=== PATIENT | male | born 1965 | race Caucasian/White ===

== ENCOUNTER 2017-05-03 17:07 | Inpatient (IN) | payer OTHER ==
[~2017-05-03] VITALS: Ht 157.5 cm; Wt 71.4 kg
[~2017-05-03 17:07] MED LIST: ABILIFY5 MG PO; ACID CONTROL20 MG PO; ADVAIR 250/501 DISK IH; ADVAIR HFA120 INHALA IH; ANTI-DIARRHEA2 MG PO; ARIPIPRAZOLE5 MG PO; ASMANEX TW200 MICRO1 IH; ASMANEX TW200 MICROG IH; AUGMENTIN875 MG PO; Advair HFA 115/21 IH; BENZTROPINE ME0.5 MG PO; COGENTIN0.5 MG PO; DELTASONE20 M1 PO; DIAZEPAM5 MG PO; FANAPT2 MG PO; FANAPT8 MG PO; FENOFIBRATE160 M1 PO; FLUOXETINE HCL10 MG PO; GLIMEPIRIDE1 MG PO; GLUCOPHAGE500 MG PO; Habitrol,Nicoderm CQ TD; LO-DOSE ASPIRIN81 M1 PO; LOFIBRA,TRIGLI160 MG PO; LOPID600 MG PO; Levaquin PO; MAXAIR AUTOHALE14 GM IH; MOTRIN800 MG PO; PERPHENAZINE4 MG PO; PERPHENAZINE8 MG PO; PREDNISONE10 MG PO; PREDNISONE20 MG PO; PROAIR HFA8.5 GM IH; PROSCAR5 MG PO; PROZAC10 MG PO; Proventil,Ventolin H IH; SPIRIVA RESPIMAT4 GM IH; TAMSULOSIN HCL0.4 MG PO; TRAZODONE HCL50 MG PO; TRILAFON4 MG PO; TRILAFON8 MG PO; Theo-Dur,Theocron PO; VALIUM2 MG PO; VENTOLIN HFA18 GM IH; VESICARE5 MG PO; WELCHOL3.75 GM PO
[2017-05-03 19:44] LABS: EOSINOPHIL COUNT 0.2 K/uL (0-0.3); HEMATOCRIT 49.4 % (38.0-50.0); IMMATURE GRANULOCYTE (%) 0.4 % (0.0-0.7); INSTRUMENT ABS NEUTROPHIL CT 4.8 K/uL; LYMPHOCYTE COUNT 2.1 K/uL (1.0-2.8); MCV 97.1 FL (86-99); MEAN PLAT.VOLUME 10.3 uM^3 (9.0-12.4); MONOCYTE (%) 5.7 % (3-12); MONOCYTE COUNT 0.4 K/uL (0-0.8); NEUTROPHIL (%) 63.4 % (45-76); NEUTROPHIL COUNT 4.8 K/uL (1.8-6.4); PLATELET COUNT 112 K/uL (156-360); RBC DIS.WIDTH-CV 11.4 % (11.8-14.6); RBC DIS.WIDTH-SD 40.8 % (39-53); RED BLOOD COUNT 5.09 M/uL (4.00-5.50); WHITE BLOOD COUNT 7.6 K/uL (4.1-10.2)
[2017-05-03 19:52] LABS: CHLORIDE 105 mEq/L (99-109); POTASSIUM 4.3 mEq/L (3.7-5.4); SODIUM 143 mEq/L (136-147)
[2017-05-03 19:54] LABS: GLUCOSE 107 mg/dL (70-99)
[2017-05-03 19:56] LABS: ANION GAP 12 MEQ/L (2-14)
[2017-05-03 19:57] LABS: SERUM ETHYL ALCOHOL < 10 mg/dL
[2017-05-03 19:58] LABS: GFR ESTIMATE (CALCULATED) > 59 mL/min/
[2017-05-03 19:59] LABS: UREA NITROGEN (BUN) 10 mg/dL (9-23)
[2017-05-03] MEDS ORDERED: ASMANEX TW200 MICRO1 IH (21:46)
[2017-05-03] MEDS ORDERED: GLUCOPHAGE XR750 MG PO (21:47)
[2017-05-03] MEDS ORDERED: VASCEPA1 GM PO (21:48)
[2017-05-03] MEDS ORDERED: TAMSULOSIN HCL0.4 MG PO (21:49)
[2017-05-03] MEDS ORDERED: TRAZODONE HCL50 MG PO (21:50)
[2017-05-03] MEDS ORDERED: BENZTROPINE ME0.5 MG PO (21:51)
[2017-05-03] MEDS ORDERED: ARIPIPRAZOLE10 MG PO (21:52)
[2017-05-03] MEDS ORDERED: TRILAFON8 MG PO (21:53)
[2017-05-03] MEDS ORDERED: FINASTERIDE5 MG PO (21:54)
[2017-05-03] MEDS ORDERED: SPIRIVA RESPIMAT4 GM IH (21:55)
[2017-05-03 23:10] LABS: AMPHETAMINE NEGATIVE (500 ng/mL); BARBITURATES NEGATIVE (200 ng/mL); BENZODIAZEPINES NEGATIVE (150 ng/mL); COCAINE NEGATIVE (150 ng/mL); INTERNAL CONTROLS VALID? YES; METHADONE NEGATIVE (200 ng/mL); METHAMPHETAMINE NEGATIVE (500 ng/mL); OPIATES (MORPHINE) NEGATIVE (100 ng/mL); OXYCODONE NEGATIVE (100 ng/mL); PHENCYCLIDINE NEGATIVE (25 ng/mL); PROPOXYPHENE NEGATIVE (300 ng/mL); THC CANNABINOIDS NEGATIVE (50 ng/mL); TRICYCLIC ANTIDEPRESSANTS NEGATIVE (300 ng/mL)
[2017-05-04 00:43] VITALS: BP 121/71
[2017-05-04 01:08] VITALS: BP 121/71
[2017-05-04 07:32] VITALS: BP 144/78
[2017-05-04 15:45] VITALS: BP 138/78
[2017-05-05 07:33] VITALS: BP 133/85
[2017-05-05 15:23] VITALS: BP 125/80
[2017-05-06 07:26] VITALS: BP 129/81
[2017-05-06 15:30] VITALS: BP 130/79
[2017-05-07 07:34] VITALS: BP 123/76
[2017-05-07 15:41] VITALS: BP 121/79
[2017-05-08 07:43] VITALS: BP 112/67
[2017-05-08] MEDS ORDERED: PERPHENAZINE16 MG PO (09:53)
== END 2017-05-08 11:29 | disposition home or self-care (01) | DRG 885 ==
LOC: EME 17:07 → EDOF 19:45 → 1WEST 19:45
PROVIDERS: Emergency Medicine
DX: F20.9 Schizophrenia, unspecified (principal); I50.9 Heart failure, unspecified; E11.9 Type 2 diabetes mellitus without complications; F22 Delusional disorders; E78.00 Pure hypercholesterolemia, unspecified; Z91.19 Patient's noncompliance with other medical treatment and regimen; F17.200 Nicotine dependence, unspecified, uncomplicated; J44.9 Chronic obstructive pulmonary disease, unspecified; Z91.14 Patient's other noncompliance with medication regimen; Z68.29 Body mass index [BMI] 29.0-29.9, adult
CPT/HCPCS: 80048; 85025; 90839; 94640; 94640 76; 97150 GO; 97165 GO; 99281; 99284; G0480; Q0175

== ENCOUNTER 2017-05-29 13:52 | Emergency (ER) | payer OTHER ==
[~2017-05-29] VITALS: Ht 157.5 cm; Wt 71.2 kg
[~2017-05-29 13:52] MED LIST changes: +ARIPIPRAZOLE10 MG PO; +FINASTERIDE5 MG PO; +GLUCOPHAGE XR750 MG PO; +PERPHENAZINE16 MG PO; +VASCEPA1 GM PO
[2017-05-29 16:13] LABS: AMPHETAMINE NEGATIVE (500 ng/mL); BARBITURATES NEGATIVE (200 ng/mL); BENZODIAZEPINES NEGATIVE (150 ng/mL); COCAINE NEGATIVE (150 ng/mL); INTERNAL CONTROLS VALID? YES; METHADONE NEGATIVE (200 ng/mL); METHAMPHETAMINE NEGATIVE (500 ng/mL); OPIATES (MORPHINE) NEGATIVE (100 ng/mL); OXYCODONE NEGATIVE (100 ng/mL); PHENCYCLIDINE NEGATIVE (25 ng/mL); PROPOXYPHENE NEGATIVE (300 ng/mL); THC CANNABINOIDS NEGATIVE (50 ng/mL); TRICYCLIC ANTIDEPRESSANTS NEGATIVE (300 ng/mL)
[2017-05-29 16:39] LABS: HEMATOCRIT 50.7 % (38.0-50.0); MCH 34.5 PG (29.0-34.0); MCHC 35.9 G/DL (30.0-36.0); MEAN PLAT.VOLUME 10.1 uM^3 (9.0-12.4); PLATELET COUNT 139 K/uL (156-360); RBC DIS.WIDTH-CV 11.2 % (11.8-14.6); RBC DIS.WIDTH-SD 39.7 % (39-53); RED BLOOD COUNT 5.28 M/uL (4.00-5.50); WHITE BLOOD COUNT 11.4 K/uL (4.1-10.2)
[2017-05-29 16:47] LABS: CHLORIDE 106 mEq/L (99-109); POTASSIUM 4.1 mEq/L (3.7-5.4); SODIUM 140 mEq/L (136-147)
[2017-05-29 16:49] LABS: GLUCOSE 116 mg/dL (70-99)
[2017-05-29 16:50] LABS: ANION GAP 7 MEQ/L (2-14)
[2017-05-29 16:52] LABS: SERUM ETHYL ALCOHOL < 10 mg/dL
[2017-05-29 16:53] LABS: GFR ESTIMATE (CALCULATED) > 59 mL/min/
[2017-05-29 16:54] LABS: UREA NITROGEN (BUN) 11 mg/dL (9-23)
[2017-05-29] MEDS ORDERED: FLONASE16 G1 BOTH NARES (18:11)
[2017-05-29] MEDS ORDERED: ALLERGY RELIEF10 M1 PO (18:11)
[2017-05-29] MEDS ORDERED: ABILIFY MAINTE400 M1 IM (18:11)
[2017-05-29] MEDS ORDERED: FENOFIBRATE160 M1 PO (18:12)
[2017-05-29 19:49] VITALS: BP 131/81
== END 2017-05-29 19:56 ==
LOC: EME 13:52
PROVIDERS: Emergency Medicine
DX: F20.9 Schizophrenia, unspecified (principal); R41.83 Borderline intellectual functioning; J45.909 Unspecified asthma, uncomplicated; E11.9 Type 2 diabetes mellitus without complications; Z79.84 Long term (current) use of oral hypoglycemic drugs; F17.200 Nicotine dependence, unspecified, uncomplicated
CPT/HCPCS: 80048; 85027; 90837; 99281; 99285; G0480

== ENCOUNTER 2017-06-15 14:47 | Emergency (ER) | payer OTHER ==
[~2017-06-15] VITALS: Ht 157.5 cm; Wt 71.5 kg
[~2017-06-15 14:47] MED LIST changes: +ABILIFY MAINTE400 M1 IM; +ALLERGY RELIEF10 M1 PO; +FLONASE16 G1 BOTH NARES
[2017-06-15 15:49] LABS: EOSINOPHIL (%) 1.8 % (0-5); EOSINOPHIL COUNT 0.2 K/uL (0-0.3); HEMATOCRIT 48.7 % (38.0-50.0); IMMATURE GRANULOCYTE (%) 0.6 % (0.0-0.7); IMMATURE GRANULOCYTE COUNT 0.1 K/uL; INSTRUMENT ABS NEUTROPHIL CT 5.4 K/uL; MCH 34.7 PG (29.0-34.0); MCHC 35.7 G/DL (30.0-36.0); MCV 97.2 FL (86-99); MEAN PLAT.VOLUME 9.5 uM^3 (9.0-12.4); MONOCYTE (%) 7.7 % (3-12); MONOCYTE COUNT 0.6 K/uL (0-0.8); NEUTROPHIL (%) 65.2 % (45-76); NEUTROPHIL COUNT 5.4 K/uL (1.8-6.4); PLATELET COUNT 128 K/uL (156-360); RBC DIS.WIDTH-CV 11.7 % (11.8-14.6); RBC DIS.WIDTH-SD 41.8 % (39-53); RED BLOOD COUNT 5.01 M/uL (4.00-5.50); WHITE BLOOD COUNT 8.2 K/uL (4.1-10.2)
[2017-06-15 16:01] LABS: CHLORIDE 105 mEq/L (99-109); POTASSIUM 4.3 mEq/L (3.7-5.4); SODIUM 142 mEq/L (136-147)
[2017-06-15 16:03] LABS: GLUCOSE 163 mg/dL (70-99)
[2017-06-15 16:04] LABS: ANION GAP 11 MEQ/L (2-14)
[2017-06-15 16:06] LABS: SERUM ETHYL ALCOHOL < 10 mg/dL
[2017-06-15 16:07] LABS: GFR ESTIMATE (CALCULATED) > 59 mL/min/
[2017-06-15 16:09] LABS: UREA NITROGEN (BUN) 7 mg/dL (9-23)
[2017-06-15 16:10] LABS: SALICYLATE < 5.0 MG/DL (15-30)
[2017-06-15 17:26] LABS: AMPHETAMINE NEGATIVE (500 ng/mL); BARBITURATES NEGATIVE (200 ng/mL); BENZODIAZEPINES NEGATIVE (150 ng/mL); COCAINE NEGATIVE (150 ng/mL); INTERNAL CONTROLS VALID? YES; METHADONE NEGATIVE (200 ng/mL); METHAMPHETAMINE NEGATIVE (500 ng/mL); OPIATES (MORPHINE) NEGATIVE (100 ng/mL); OXYCODONE NEGATIVE (100 ng/mL); PHENCYCLIDINE NEGATIVE (25 ng/mL); PROPOXYPHENE NEGATIVE (300 ng/mL); THC CANNABINOIDS NEGATIVE (50 ng/mL); TRICYCLIC ANTIDEPRESSANTS NEGATIVE (300 ng/mL)
[2017-06-15 19:35] VITALS: BP 125/78
== END 2017-06-15 19:36 ==
LOC: EME 14:47
PROVIDERS: Emergency Medicine
DX: F20.9 Schizophrenia, unspecified (principal); R41.83 Borderline intellectual functioning; J45.909 Unspecified asthma, uncomplicated; E11.9 Type 2 diabetes mellitus without complications; Z79.84 Long term (current) use of oral hypoglycemic drugs; I50.9 Heart failure, unspecified; F41.9 Anxiety disorder, unspecified; F17.200 Nicotine dependence, unspecified, uncomplicated
CPT/HCPCS: 80048; 85025; 90837; 99281; 99285; G0480

== ENCOUNTER 2017-07-10 20:34 | Emergency (ER) | payer OTHER ==
[~2017-07-10] VITALS: Ht 157.5 cm; Wt 74.3 kg
[2017-07-11 00:11] LABS: HEMATOCRIT 48.8 % (38.0-50.0); MCH 34.2 PG (29.0-34.0); MCHC 34.4 G/DL (30.0-36.0); MCV 99.4 FL (86-99); MEAN PLAT.VOLUME 9.9 uM^3 (9.0-12.4); PLATELET COUNT 150 K/uL (156-360); RBC DIS.WIDTH-CV 12.3 % (11.8-14.6); RBC DIS.WIDTH-SD 45.5 % (39-53); RED BLOOD COUNT 4.91 M/uL (4.00-5.50); WHITE BLOOD COUNT 8.8 K/uL (4.1-10.2)
[2017-07-11 00:29] LABS: CHLORIDE 102 mEq/L (99-109); POTASSIUM 4.5 mEq/L (3.7-5.4); SODIUM 142 mEq/L (136-147)
[2017-07-11 00:31] LABS: GLUCOSE 127 mg/dL (70-99)
[2017-07-11 00:32] LABS: ANION GAP 10 MEQ/L (2-14)
[2017-07-11 00:34] LABS: SERUM ETHYL ALCOHOL < 10 mg/dL
[2017-07-11 00:35] LABS: GFR ESTIMATE (CALCULATED) > 59 mL/min/
[2017-07-11 00:36] LABS: UREA NITROGEN (BUN) 16 mg/dL (9-23)
[2017-07-11 10:15] LABS: AMPHETAMINE NEGATIVE (500 ng/mL); BARBITURATES NEGATIVE (200 ng/mL); BENZODIAZEPINES NEGATIVE (150 ng/mL); COCAINE NEGATIVE (150 ng/mL); INTERNAL CONTROLS VALID? YES; METHADONE NEGATIVE (200 ng/mL); METHAMPHETAMINE NEGATIVE (500 ng/mL); OPIATES (MORPHINE) NEGATIVE (100 ng/mL); OXYCODONE NEGATIVE (100 ng/mL); PHENCYCLIDINE NEGATIVE (25 ng/mL); PROPOXYPHENE NEGATIVE (300 ng/mL); THC CANNABINOIDS NEGATIVE (50 ng/mL); TRICYCLIC ANTIDEPRESSANTS NEGATIVE (300 ng/mL)
[2017-07-11 11:43] VITALS: BP 131/87
== END 2017-07-11 11:45 ==
LOC: EME 20:34
DX: R44.0 Auditory hallucinations (principal); F20.9 Schizophrenia, unspecified; R45.851 Suicidal ideations; R45.850 Homicidal ideations; R41.83 Borderline intellectual functioning; J45.909 Unspecified asthma, uncomplicated; I50.9 Heart failure, unspecified; E11.9 Type 2 diabetes mellitus without complications; F17.200 Nicotine dependence, unspecified, uncomplicated; Z79.84 Long term (current) use of oral hypoglycemic drugs
CPT/HCPCS: 80048; 85027; 90837; 99281; 99283; G0480

== ENCOUNTER 2017-07-21 13:53 | Emergency (ER) | payer OTHER ==
[~2017-07-21] VITALS: Ht 157.5 cm; Wt 703.0 kg
[2017-07-21 15:09] LABS: EOSINOPHIL (%) 3.1 % (0-5); EOSINOPHIL COUNT 0.2 K/uL (0-0.3); HEMATOCRIT 48.1 % (38.0-50.0); IMMATURE GRANULOCYTE (%) 0.7 % (0.0-0.7); INSTRUMENT ABS NEUTROPHIL CT 3.4 K/uL; LYMPHOCYTE COUNT 1.9 K/uL (1.0-2.8); MCH 33.8 PG (29.0-34.0); MCHC 34.7 G/DL (30.0-36.0); MCV 97.4 FL (86-99); MEAN PLAT.VOLUME 9.7 uM^3 (9.0-12.4); MONOCYTE (%) 8.3 % (3-12); MONOCYTE COUNT 0.5 K/uL (0-0.8); NEUTROPHIL (%) 55.6 % (45-76); NEUTROPHIL COUNT 3.4 K/uL (1.8-6.4); PLATELET COUNT 137 K/uL (156-360); RBC DIS.WIDTH-CV 11.8 % (11.8-14.6); RBC DIS.WIDTH-SD 42.5 % (39-53); RED BLOOD COUNT 4.94 M/uL (4.00-5.50); WHITE BLOOD COUNT 6.1 K/uL (4.1-10.2)
[2017-07-21 15:18] LABS: CHLORIDE 103 mEq/L (99-109); POTASSIUM 4.2 mEq/L (3.7-5.4); SODIUM 141 mEq/L (136-147)
[2017-07-21 15:19] LABS: MAGNESIUM 2.2 mg/dL (1.3-2.7)
[2017-07-21 15:21] LABS: GLUCOSE 147 mg/dL (70-99)
[2017-07-21 15:22] LABS: ANION GAP 10 MEQ/L (2-14)
[2017-07-21 15:24] LABS: GFR ESTIMATE (CALCULATED) > 59 mL/min/; SERUM ETHYL ALCOHOL < 10 mg/dL
[2017-07-21 15:26] LABS: UREA NITROGEN (BUN) 11 mg/dL (9-23)
[2017-07-21 15:28] LABS: SALICYLATE < 5.0 MG/DL (15-30)
[2017-07-21 16:22] VITALS: BP 132/77
== END 2017-07-21 16:40 | disposition home or self-care (01) ==
LOC: EME 13:53
PROVIDERS: Emergency Medicine
DX: F20.9 Schizophrenia, unspecified (principal); F41.9 Anxiety disorder, unspecified; R41.83 Borderline intellectual functioning; J44.9 Chronic obstructive pulmonary disease, unspecified; I50.9 Heart failure, unspecified; E11.9 Type 2 diabetes mellitus without complications; F79 Unspecified intellectual disabilities; Z79.84 Long term (current) use of oral hypoglycemic drugs; F17.200 Nicotine dependence, unspecified, uncomplicated
CPT/HCPCS: 80048; 83735; 85025; 90837; 94640; 99281; 99285; G0480